=== PATIENT | female | born 1970 | race Two or more races ===

== ENCOUNTER 2016-12-22 18:20 | Emergency (ER) | payer SELFPAY ==
[2016-12-22 18:26] VITALS: BP 144/84
--- NOTE | 2016-12-22 18:42 | ED Physician Documentation ---
PD HPI OPHTHO - Stated complaint Stated Complaint: REDNESS IN R EYE - Chief complaint Chief Complaint: Heent - History obtained from History obtained from: Patient - History of Present Illness Timing - onset: Other (Starting yesterday, without specific trauma she developed redness of the medial part of the right eye without significant visual deficit. It is mildly painful and it feels like it is gritty. There was no injury. She does not wear contacts.) Review of Systems Constitutional: denies: Fever, Chills Eyes: reports: Irritation. denies: Loss of vision, Decreased vision, Photophobia, Discharge Ears: denies: Loss of hearing, Ear pain PD PAST MEDICAL HISTORY - Present Medications Home Medications: Ambulatory Orders Medication Instructions Recorded Confirmed Penbutolol Sulfate [Levatol] 20 mg PO DAILY PM 12/22/16 12/22/16 - Allergies Allergies/Adverse Reactions: Allergies Allergy/AdvReac Type Severity Reaction Status Date / Time No Known Drug Allergies Allergy Verified 04/19/15 01:25 - Social History Smoking Status: Never smoker PD ED PE NORMAL - Vitals Vital signs reviewed: Yes - General General: Alert and oriented X 3, No acute distress - HEENT HEENT: PERRL, EOMI, Other (On the medial part of the right bulbar conjunctiva she has a sub-conjunctival hemorrhage) - Neck Neck: Supple, no meningeal sign, No bony TTP - Neuro Neuro: Alert and oriented X 3, Normal speech - Psych Psych: Normal mood, Normal affect Results - Vitals Vitals: Vital Signs - 24 hr 12/22/16 18:22 Temperature 36.4 C L Heart Rate 74 Respiratory 16 Rate Blood Pressure 144/84 H O2 Saturation 100 Oxygen O2 Source Room air Departure - Departure Disposition: Home, Self Care Clinical Impression: Subconjunctival hemorrhage Qualifiers: Laterality: right Qualified Code(s): H11.31 - Conjunctival hemorrhage, right eye Condition: Good Record reviewed to determine appropriate education?: Yes Instructions: ED Eye Injury Subconj Hemorrhage Comments: Follow-up with your eye doctor this week. Return if worse. Forms: Activity restrictions
== END 2016-12-22 19:02 | disposition home or self-care (01) ==
LOC: ED 18:20
DX: H11.31 Conjunctival hemorrhage, right eye (principal)
CPT/HCPCS: 99282; 99283

== ENCOUNTER 2017-06-25 10:16 | Outpatient (CLI) | payer MEDICAID | END 2017-06-25 10:17 | disposition home or self-care (01) | LOC: LAB 10:16 | PROVIDERS: ATTEND Nurse Practitioner Gerontology | DX: R76.11 Nonspecific reaction to tuberculin skin test without active tuberculosis (principal) | CPT/HCPCS: 36415; 81599; 86480 ==

== ENCOUNTER 2017-08-16 15:03 | Outpatient (CLI) | payer MEDICAID ==
--- NOTE | 2017-08-20 15:10 | Mammography Report ---
DIGITAL SCREENING MAMMOGRAM: 08/16/2017 CLINICAL INDICATION: A 46-year-old with history of late childbearing for screening. COMPARISON: 11/2013, 10/2013. TECHNIQUE: Routine CC and MLO projections were obtained of the breasts. FINDINGS: Parenchymal tissue within both breasts is heterogeneously dense, which may lower the sensitivity of mammography; however, there are no dominant masses, suspicious microcalcifications, or secondary signs of malignancy. In comparison to the previous studies, there are no significant changes. IMPRESSION: NO MAMMOGRAPHIC EVIDENCE OF MALIGNANCY. NO SIGNIFICANT INTERVAL CHANGES. RECOMMENDATION: Screening mammography is recommended annually. BIRADS CATEGORY 1 - NEGATIVE. STANDARD QUALIFYING STATEMENTS: 1. This examination was reviewed with the aid of Computed-Aided Detection (CAD). 2. A negative or benign imaging report should not delay biopsy if clinically suspicious findings are present. Consider surgical consultation if warranted. More than 5% of cancers are not identified by imaging. 3. Dense breasts may obscure an underlying neoplasm. TD: 08/20/2017 15:00
== END 2017-08-16 15:04 | disposition home or self-care (01) ==
LOC: DI.N 15:03
PROVIDERS: ATTEND Nurse Practitioner Gerontology
DX: Z12.31 Encounter for screening mammogram for malignant neoplasm of breast (principal)
CPT/HCPCS: 77067

== ENCOUNTER 2017-10-10 10:19 | Outpatient (CLI) | payer MEDICAID ==
[2017-10-10 18:57] LABS: BASOPHILS # (AUTO) 0.1 10^3/uL (0.0-0.1); BASOPHILS % (AUTO) 0.7 %; EOSINOPHILS # (AUTO) 0.3 10^3/uL (0.0-0.7); EOSINOPHILS % (AUTO) 3.9 %; HGB - HEMOGLOBIN 13.7 g/dL (12.0-16.0); LYMPHOCYTES # (AUTO) 1.8 10^3/uL (1.5-3.5); LYMPHOCYTES % (AUTO) 25.1 %; MEAN CORPUSCULAR HEMOGLOBIN 28.5 pg (27.0-31.0); MEAN CORPUSCULAR HGB CONC 32.9 g/dL (32.0-36.0); MEAN CORPUSCULAR VOLUME 86.5 fL (81.0-99.0); MEAN PLATELET VOLUME 10.6 fL (7.9-10.8); MONOCYTES # (AUTO) 0.5 10^3/uL (0.0-1.0); MONOCYTES % (AUTO) 6.2 %; NEUTROPHILS # (AUTO) 4.7 10^3/uL (1.5-6.6); NEUTROPHILS % (AUTO) 64.1 %; PLT - PLATELET COUNT 178 10^3/uL (130-450); RED BLOOD COUNT 4.82 10^6/uL (4.20-5.40); WHITE BLOOD COUNT 7.3 x10^3/uL (4.8-10.8)
[2017-10-10 19:27] LABS: ALBUMIN 3.7 g/dL (3.2-5.5); ALBUMIN/GLOBULIN RATIO 1.1 (1.0-2.2); ALKALINE PHOSPHATASE 68 IU/L (42-121); ALT ALANINE AMINOTRANSFERASE 32 IU/L (10-60); AST ASPARTATE AMINOTRANSFERASE 25 IU/L (10-42); BILIRUBIN,TOTAL 0.6 mg/dL (0.2-1.0); BUN - BLOOD UREA NITROGEN 9 mg/dL (6-20); CALCIUM 8.6 mg/dL (8.5-10.3); CARBON DIOXIDE - CO2 25 mmol/L (21-32); CHLORIDE 106 mmol/L (101-111); CHOL/HDL RATIO 6.7 (<4.4); CHOLESTEROL 337 mg/dL; CREATININE 0.5 mg/dL (0.4-1.0); GFR - MDRD 133 (>89); GLUCOSE 116 mg/dL (70-100); HDL CHOLESTEROL 50 mg/dL; LDL CHOLESTEROL,CALCULATED 247 mg/dL; LDL/HDL RATIO 4.9 (<4.4); SODIUM 137 mmol/L (135-145); TOTAL PROTEIN 7.2 g/dL (6.7-8.2); VLDL CHOLESTEROL 40 mg/dL
== END 2017-10-10 10:20 | disposition home or self-care (01) ==
LOC: LAB.N 10:19
PROVIDERS: ATTEND Nurse Practitioner Gerontology
DX: Z13.9 Encounter for screening, unspecified (principal); I10 Essential (primary) hypertension; E03.9 Hypothyroidism, unspecified
CPT/HCPCS: 36415; 80050; 80061; 83721

== ENCOUNTER 2018-05-07 08:24 | Outpatient (CLI) | payer MEDICAID ==
[2018-05-07 13:07] LABS: HB2 TOTAL 15.5 g/dL; HEMOGLOBIN A1C 0.58 g/dL; HEMOGLOBIN A1C % 5.6 % (4.6-6.2)
[2018-05-07 13:12] LABS: ALBUMIN/GLOBULIN RATIO 1.1 (1.0-2.2); ALKALINE PHOSPHATASE 69 IU/L (42-121); ALT ALANINE AMINOTRANSFERASE 41 IU/L (10-60); AST ASPARTATE AMINOTRANSFERASE 26 IU/L (10-42); BUN - BLOOD UREA NITROGEN 14 mg/dL (6-20); CALCIUM 8.9 mg/dL (8.5-10.3); CARBON DIOXIDE - CO2 25 mmol/L (21-32); CHLORIDE 104 mmol/L (101-111); CHOL/HDL RATIO 9.6 (<4.4); CHOLESTEROL 364 mg/dL; CREATININE 0.5 mg/dL (0.4-1.0); GFR - MDRD 133 (>89); GLUCOSE 118 mg/dL (70-100); HDL CHOLESTEROL 38 mg/dL; LDL CHOLESTEROL,CALCULATED 291 mg/dL; LDL/HDL RATIO 7.7 (<4.4); SODIUM 138 mmol/L (135-145); TOTAL PROTEIN 7.5 g/dL (6.7-8.2); VLDL CHOLESTEROL 35 mg/dL
== END 2018-05-07 23:59 | disposition home or self-care (01) ==
LOC: LAB.N 08:24
PROVIDERS: ATTEND Nurse Practitioner Gerontology
DX: R73.01 Impaired fasting glucose (principal); E78.5 Hyperlipidemia, unspecified
CPT/HCPCS: 36415; 80053; 80061; 83036; 83721

== ENCOUNTER 2019-01-23 13:12 | Outpatient (CLI) | payer MEDICAID ==
--- NOTE | 2019-01-23 13:44 | Mammography Report ---
Reason: SCREENING MAMMO Procedure Date: 01/23/2019 Accession Number: [id number] / [id number] Procedure: [facility]N - Screening Mammo Dig Bilat CPT Code: FULL RESULT: EXAM: Screening Mammo Dig Bilat DATE: 01/23/2019 1:34 PM CLINICAL HISTORY: Routine screening TECHNIQUE: (B) - Bilateral CC and MLO views were obtained. COMPARISON: 08/16/2017, 12/11/2013, 11/25/2013 PARENCHYMAL PATTERN: (D) - The breasts demonstrate heterogeneously dense fibroglandular parenchyma bilaterally. FINDINGS: No significant interval change. There are no suspicious masses, calcifications, or areas of distortion. IMPRESSION: Negative examination. BI-RADS category 1. RECOMMENDATION: (ANNUAL) - Recommend routine annual screening mammography. BI-RADS CATEGORY: (1) - Negative. STANDARD QUALIFYING STATEMENTS: 1. This examination was not reviewed with the aid of Computer-Aided Detection (CAD). 2. A negative or benign imaging report should not preclude biopsy if clinically suspicious findings are present. 3. Dense breasts may obscure an underlying neoplasm. 4. This examination was reviewed without the aid of 3D breast imaging (tomosynthesis).
== END 2019-01-23 13:13 | disposition home or self-care (01) ==
LOC: DI.N 13:12
DX: Z12.31 Encounter for screening mammogram for malignant neoplasm of breast (principal)
CPT/HCPCS: 77067

== ENCOUNTER 2019-01-27 11:43 | Outpatient (CLI) | payer MEDICAID ==
[2019-01-27 12:55] LABS: HB2 TOTAL 14.5 g/dL; HEMOGLOBIN A1C 0.57 g/dL; HEMOGLOBIN A1C % 5.7 % (4.6-6.2)
== END 2019-01-27 11:44 | disposition home or self-care (01) ==
LOC: LAB 11:43
PROVIDERS: ATTEND Obstetrics & Gynecology
DX: R73.01 Impaired fasting glucose (principal)
CPT/HCPCS: 36415; 83036

== ENCOUNTER 2019-09-28 20:32 | Outpatient (CLI) | payer MEDICAID ==
--- NOTE | 2019-09-29 09:09 | XRAY Report ---
PROCEDURE: Lumbar Spine 2 View INDICATIONS: MUSCLE SPASM, LUMBAR REGION, LUMBAR RADICULOPATHY TECHNIQUE: 2 views of the lumbar spine were acquired. COMPARISON: None. FINDINGS: Bones: 6 [id number] vertebrae are present. There is normal bony alignment. Mild degenerative e ndplate changes and bilateral facet arthrosis at L4-5 and L5-S1 levels are seen. No vertebral body co mpression fractures. No suspicious bony lesions. Soft tissues: Overlying bowel gas pattern is normal. No suspicious soft tissue calcifications. 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 No acute compre ssion fracture. Mild degenerative endplate changes in lower lumbar spine. Reviewed by: Tony Conner MD on 09/29/2019 9:08 AM PDT Approved by: Tony Conner MD on 09/29/2019 9:08 AM PDT Station ID: [id number]
== END 2019-09-28 20:33 | disposition home or self-care (01) ==
LOC: DI 20:32
PROVIDERS: ATTEND Family Medicine
DX: M51.16 Intervertebral disc disorders with radiculopathy, lumbar region (principal); M62.830 Muscle spasm of back
CPT/HCPCS: 72100

== ENCOUNTER 2019-11-24 15:56 | Outpatient (CLI) | payer MEDICAID ==
[2019-11-24 18:19] LABS: BASOPHILS # (AUTO) 0.1 10^3/uL (0.0-0.1); BASOPHILS % (AUTO) 0.6 %; EOSINOPHILS # (AUTO) 0.3 10^3/uL (0.0-0.7); EOSINOPHILS % (AUTO) 3.3 %; HGB - HEMOGLOBIN 13.2 g/dL (12.0-16.0); LYMPHOCYTES % (AUTO) 24.7 %; MEAN CORPUSCULAR HEMOGLOBIN 28.1 pg (27.0-31.0); MEAN CORPUSCULAR HGB CONC 32.8 g/dL (32.0-36.0); MEAN CORPUSCULAR VOLUME 85.9 fL (81.0-99.0); MEAN PLATELET VOLUME 12.2 fL (7.9-10.8); MONOCYTES # (AUTO) 0.6 10^3/uL (0.0-1.0); MONOCYTES % (AUTO) 7.5 %; NEUTROPHILS # (AUTO) 5.2 10^3/uL (1.5-6.6); NEUTROPHILS % (AUTO) 63.5 %; PLT - PLATELET COUNT 210 10^3/uL (130-450); RED BLOOD COUNT 4.69 10^6/uL (4.20-5.40); WHITE BLOOD COUNT 8.2 x10^3/uL (4.8-10.8)
[2019-11-24 18:45] LABS: ALBUMIN 3.9 g/dL (3.2-5.5); ALBUMIN/GLOBULIN RATIO 1.1 (1.0-2.2); ALKALINE PHOSPHATASE 67 IU/L (42-121); ALT ALANINE AMINOTRANSFERASE 30 IU/L (10-60); AST ASPARTATE AMINOTRANSFERASE 19 IU/L (10-42); BILIRUBIN,TOTAL 0.8 mg/dL (0.2-1.0); BUN - BLOOD UREA NITROGEN 14 mg/dL (6-20); CALCIUM 8.9 mg/dL (8.5-10.3); CARBON DIOXIDE - CO2 26 mmol/L (21-32); CHLORIDE 106 mmol/L (101-111); CHOL/HDL RATIO 7.5 (<4.4); CHOLESTEROL 336 mg/dL; CREATININE 0.7 mg/dL (0.4-1.0); GLUCOSE 100 mg/dL (70-100); HDL CHOLESTEROL 45 mg/dL; LDL CHOLESTEROL,CALCULATED 218 mg/dL; LDL/HDL RATIO 4.8 (<4.4); SODIUM 138 mmol/L (135-145); TOTAL PROTEIN 7.4 g/dL (6.7-8.2); VLDL CHOLESTEROL 73 mg/dL
[2019-11-24 19:08] LABS: HEMOGLOBIN A1c% 5.7 % (4.27-6.07)
== END 2019-11-24 23:59 | disposition home or self-care (01) ==
LOC: LAB.WCP 15:56
PROVIDERS: ATTEND Family Medicine
DX: I10 Essential (primary) hypertension (principal); R73.01 Impaired fasting glucose
CPT/HCPCS: 36415; 80050; 80061; 83036; 83721

== ENCOUNTER 2020-02-22 07:31 | Outpatient (CLI) | payer MEDICAID ==
[2020-02-22 12:07] LABS: CALCIUM 8.7 mg/dL (8.5-10.3); CREATININE 0.5 mg/dL (0.4-1.0)
[2020-02-22 12:35] LABS: MICROALBUM/CREATININE RATIO,UR 17.3 ug/mg (<30.0); MICROALBUMIN,URINE 1.7 mg/dL (0-300.0)
[2020-02-22 13:53] LABS: HEMOGLOBIN A1c% 5.9 % (4.27-6.07)
== END 2020-02-22 23:59 | disposition home or self-care (01) ==
LOC: LAB.WCP 07:31
PROVIDERS: ATTEND Family Medicine
DX: O24.419 Gestational diabetes mellitus in pregnancy, unspecified control (principal); E03.9 Hypothyroidism, unspecified
CPT/HCPCS: 36415; 80048; 82043; 82570; 83036; 84443

== ENCOUNTER 2020-04-05 07:21 | Outpatient (CLI) | payer MEDICAID ==
[2020-04-05 13:25] LABS: CHOL/HDL RATIO 6.4 (<4.4); CHOLESTEROL 328 mg/dL; HDL CHOLESTEROL 51 mg/dL; LDL CHOLESTEROL,CALCULATED 253 mg/dL; VLDL CHOLESTEROL 24 mg/dL
== END 2020-04-05 23:59 | disposition home or self-care (01) ==
LOC: LAB.WCP 07:21
PROVIDERS: ATTEND Physician Assistant
DX: E78.5 Hyperlipidemia, unspecified (principal)
CPT/HCPCS: 36415; 80061; 83721

== ENCOUNTER 2020-07-06 08:00 | Outpatient (CLI) | payer MEDICAID ==
[2020-07-06 12:41] LABS: BUN - BLOOD UREA NITROGEN 15 mg/dL (6-20); CALCIUM 8.9 mg/dL (8.5-10.3); CARBON DIOXIDE - CO2 24 mmol/L (21-32); CHLORIDE 106 mmol/L (101-111); CHOL/HDL RATIO 6.7 (<4.4); CHOLESTEROL 343 mg/dL; CREATININE 0.5 mg/dL (0.4-1.0); GFR - MDRD 132 (>89); GLUCOSE 113 mg/dL (70-100); HDL CHOLESTEROL 51 mg/dL; LDL CHOLESTEROL,CALCULATED 263 mg/dL; LDL/HDL RATIO 5.2 (<4.4); POTASSIUM 3.4 mmol/L (3.5-5.0); SODIUM 139 mmol/L (135-145); TRIGLYCERIDES 144 mg/dL; VLDL CHOLESTEROL 29 mg/dL
[2020-07-06 12:55] LABS: ESTIMATED AVERAGE GLUCOSE 117 mg/dL (70-100); HEMOGLOBIN A1c% 5.7 % (4.27-6.07)
== END 2020-07-06 23:59 | disposition home or self-care (01) ==
LOC: LAB.WCP 08:00
PROVIDERS: ATTEND Family Medicine
DX: R73.03 Prediabetes (principal); E78.5 Hyperlipidemia, unspecified
CPT/HCPCS: 36415; 80048; 80061; 83036; 83721

== ENCOUNTER 2021-01-23 09:17 | Outpatient (CLI) | payer MEDICAID ==
[2021-01-23 13:50] LABS: ALBUMIN 4.4 g/dL (3.2-5.5); ALBUMIN/GLOBULIN RATIO 1.3 (1.0-2.2); ALKALINE PHOSPHATASE 68 IU/L (42-121); ALT ALANINE AMINOTRANSFERASE 32 IU/L (10-60); AST ASPARTATE AMINOTRANSFERASE 22 IU/L (10-42); BILIRUBIN,TOTAL 0.8 mg/dL (0.2-1.0); BUN - BLOOD UREA NITROGEN 11 mg/dL (6-20); CALCIUM 9.4 mg/dL (8.5-10.3); CARBON DIOXIDE - CO2 25 mmol/L (21-32); CHLORIDE 108 mmol/L (101-111); CHOL/HDL RATIO 7.1 (<4.4); CHOLESTEROL 361 mg/dL; CREATININE 0.4 mg/dL (0.4-1.0); GFR - MDRD 170 (>89); GLUCOSE 120 mg/dL (70-100); HDL CHOLESTEROL 51 mg/dL; LDL CHOLESTEROL,CALCULATED 274 mg/dL; LDL/HDL RATIO 5.4 (<4.4); POTASSIUM 3.9 mmol/L (3.5-5.0); SODIUM 143 mmol/L (135-145); TOTAL PROTEIN 7.8 g/dL (6.7-8.2); TRIGLYCERIDES 179 mg/dL; VLDL CHOLESTEROL 36 mg/dL
[2021-01-23 13:51] LABS: BASOPHILS # (AUTO) 0.1 10^3/uL (0.0-0.1); BASOPHILS % (AUTO) 0.8 %; EOSINOPHILS # (AUTO) 0.2 10^3/uL (0.0-0.7); EOSINOPHILS % (AUTO) 3.8 %; HCT - HEMATOCRIT 42.2 % (37.0-47.0); HGB - HEMOGLOBIN 13.8 g/dL (12.0-16.0); LYMPHOCYTES # (AUTO) 1.9 10^3/uL (1.5-3.5); LYMPHOCYTES % (AUTO) 29.6 %; MEAN CORPUSCULAR HEMOGLOBIN 27.8 pg (27.0-31.0); MEAN CORPUSCULAR HGB CONC 32.7 g/dL (32.0-36.0); MEAN CORPUSCULAR VOLUME 85.1 fL (81.0-99.0); MEAN PLATELET VOLUME 12.9 fL (7.9-10.8); MONOCYTES # (AUTO) 0.3 10^3/uL (0.0-1.0); MONOCYTES % (AUTO) 5.3 %; NEUTROPHILS # (AUTO) 3.8 10^3/uL (1.5-6.6); NEUTROPHILS % (AUTO) 60.2 %; PLT - PLATELET COUNT 202 10^3/uL (130-450); RED BLOOD COUNT 4.96 10^6/uL (4.20-5.40); RED CELL DISTRIBUTION WIDTH 12.8 % (12.0-15.0); WHITE BLOOD COUNT 6.3 x10^3/uL (4.8-10.8)
[2021-01-23 13:58] LABS: THYROID STIMULATING HORMONE 1.16 uIU/mL (0.34-5.60)
[2021-01-23 14:18] LABS: ESTIMATED AVERAGE GLUCOSE 126 mg/dL (70-100)
== END 2021-01-23 23:59 | disposition home or self-care (01) ==
LOC: LAB.WCP 09:17
PROVIDERS: ATTEND Family Medicine
DX: E66.9 Obesity, unspecified (principal); R73.01 Impaired fasting glucose; E78.5 Hyperlipidemia, unspecified; I10 Essential (primary) hypertension
CPT/HCPCS: 36415; 80050; 80061; 83036; 83721

== ENCOUNTER 2022-05-25 08:15 | Outpatient (CLI) | payer MEDICAID ==
[2022-05-25 12:00] LABS: BASOPHILS # (AUTO) 0.1 10^3/uL (0.0-0.1); BASOPHILS % (AUTO) 0.7 %; EOSINOPHILS # (AUTO) 0.2 10^3/uL (0.0-0.7); EOSINOPHILS % (AUTO) 3.5 %; HCT - HEMATOCRIT 44.6 % (37.0-47.0); HGB - HEMOGLOBIN 14.6 g/dL (12.0-16.0); LYMPHOCYTES # (AUTO) 1.9 10^3/uL (1.5-3.5); LYMPHOCYTES % (AUTO) 27.4 %; MEAN CORPUSCULAR HEMOGLOBIN 27.3 pg (27.0-31.0); MEAN CORPUSCULAR HGB CONC 32.7 g/dL (32.0-36.0); MEAN CORPUSCULAR VOLUME 83.5 fL (81.0-99.0); MEAN PLATELET VOLUME 12.2 fL (7.9-10.8); MONOCYTES # (AUTO) 0.4 10^3/uL (0.0-1.0); MONOCYTES % (AUTO) 6.1 %; NEUTROPHILS # (AUTO) 4.3 10^3/uL (1.5-6.6); NEUTROPHILS % (AUTO) 62.2 %; PLT - PLATELET COUNT 245 10^3/uL (130-450); RED BLOOD COUNT 5.34 10^6/uL (4.20-5.40); RED CELL DISTRIBUTION WIDTH 12.8 % (12.0-15.0); WHITE BLOOD COUNT 6.9 x10^3/uL (4.8-10.8)
[2022-05-25 12:17] LABS: ALBUMIN 4.4 g/dL (3.2-5.5); ALBUMIN/GLOBULIN RATIO 1.2 (1.0-2.2); ALKALINE PHOSPHATASE 85 IU/L (42-121); ALT ALANINE AMINOTRANSFERASE 23 IU/L (10-60); AST ASPARTATE AMINOTRANSFERASE 19 IU/L (10-42); BILIRUBIN,TOTAL 1.1 mg/dL (0.2-1.0); BUN - BLOOD UREA NITROGEN 14 mg/dL (6-20); CALCIUM 9.3 mg/dL (8.5-10.3); CARBON DIOXIDE - CO2 28 mmol/L (21-32); CHLORIDE 102 mmol/L (101-111); CHOL/HDL RATIO 9.5 (<4.4); CHOLESTEROL 408 mg/dL; CREATININE 0.6 mg/dL (0.4-1.0); GFR - MDRD 106 (>89); GLUCOSE 100 mg/dL (70-100); HDL CHOLESTEROL 43 mg/dL; LDL CHOLESTEROL,CALCULATED 340 mg/dL; LDL/HDL RATIO 7.9 (<4.4); POTASSIUM 3.8 mmol/L (3.5-5.0); SODIUM 136 mmol/L (135-145); TOTAL PROTEIN 8.2 g/dL (6.7-8.2); TRIGLYCERIDES 123 mg/dL; VLDL CHOLESTEROL 25 mg/dL
[2022-05-25 12:25] LABS: THYROID STIMULATING HORMONE 1.1 uIU/mL (0.34-5.60)
[2022-05-25 13:09] LABS: ESTIMATED AVERAGE GLUCOSE 123 mg/dL (70-100); HEMOGLOBIN A1c% 5.9 % (4.27-6.07)
== END 2022-05-25 08:16 | disposition home or self-care (01) ==
LOC: LAB.N 08:15
PROVIDERS: ATTEND Family Medicine
DX: I10 Essential (primary) hypertension (principal); R73.03 Prediabetes; E78.5 Hyperlipidemia, unspecified; E03.9 Hypothyroidism, unspecified
CPT/HCPCS: 36415; 80050; 80061; 83036; 83721